=== PATIENT | male | born 1950 | race African-American/Black ===

== ENCOUNTER 2019-07-04 15:29 | Inpatient (IN) ==
[2019-07-04] MEDS: NS 500 ML IV ONE ×2 (15:47)
[2019-07-04 15:57] LABS: URINE SOURCE CLEAN CATCH
[2019-07-04 16:00] LABS: BILIRUBIN URINE MODERATE (NEGATIVE); BLOOD URINE NEGATIVE (NEGATIVE); COLOR YELLOW; GLUCOSE URINE NEGATIVE (NEGATIVE); KETONE URINE 20 mg/dL (NEGATIVE); LEUKOCYTES URINE NEGATIVE (NEGATIVE); NITRITE URINE NEGATIVE (NEGATIVE); PROTEIN URINE 100 mg/dL (NEGATIVE); TURBIDITY URINE HAZY (CLEAR); UROBILINOGEN URINE 6 mg/dL (NORMAL)
[2019-07-04] MEDS ORDERED: NS 1,000 ML ONE (16:14)
[2019-07-04] MEDS ORDERED: NS 1,000 ML IV ONE ×2 (16:17→17:37)
[2019-07-04 16:19] LABS: UR EPITHELIAL CELLS <10 /HPF (<10); URINE BACTERIA NEGATIVE /HPF; URINE RBC <10 /HPF (<10)
[2019-07-04 16:26] LABS: BASO# 0.04 X1000 (0.0-0.2); BASO% 0.6 % (0.0-0.8); EOS# 0.02 X1000 (0.0-0.7); EOS% 0.3 % (0.0-10.0); HEMATOCRIT 38.3 % (42.0-52.0); HEMOGLOBIN 13.5 g/dL (14.0-18.0); IMM GRAN# 0.04 X1000 (0.0-0.04); IMM GRAN% 0.6 % (0.0-0.5); LYMPH% 7.7 % (20.5-51.1); MCH 27.7 PG (27-31); MCHC 35.2 g/dL (33-37); MCV 78.6 FL (81-99); MONO# 0.92 X1000 (0.11-0.59); MONO% 14.2 % (1.7-9.3); MPV 9.5 FL (7.4-10.4); NEUT# 4.98 X1000 (1.4-6.5); NEUT% 76.6 % (42.2-75.2); PLT 384 X1000 (130-400); RBC 4.87 XMIL (4.7-6.1); RDW 12.8 % (11.5-14.5)
[2019-07-04 16:33] LABS: URINE CASTS GRANULAR PRESENT; URINE CRYSTALS NONE SEEN; URINE YEAST NONE SEEN
--- NOTE | 2019-07-04 16:38 | Diag Imaging Result Doc PS360 ---
EXAM: CHEST-1 VIEW 07/04/2019 HISTORY: SOB TECHNIQUE: AP portable upright at 1630 COMMENT: The lungs are clear and the heart and pulmonary vascularity are within normal limits. Compared to 03/23/2019 there has been no significant change. IMPRESSION: No acute disease. Electronically signed by Jose Martin Arriaga 07/04/2019 4:35 PM
[2019-07-04 16:40] LABS: INR 1.58; PROTIME 19.1 Seconds (11.0-16.0)
[2019-07-04 16:41] LABS: PTT 54.2 Seconds (22.3-41.8)
--- NOTE | 2019-07-04 16:41 | EKG Report ---
Test Performed on : 07/04/2019 4:09:12 PM Test Reason : SOB Blood Pressure : / mmHG Vent. Rate : 095 BPM Atrial Rate : 095 BPM P-R Int : 148 ms QRS Dur : 076 ms QT Int : 400 ms P-R-T Axes : 079 085 068 degrees QTc Int : 502 ms Normal sinus rhythm. Prolonged QT Abnormal ECG No previous ECGs available Unconfirmed Result
[2019-07-04 16:45] LABS: ALB/GLOB RATIO 0.8; ALBUMIN 3.5 g/dL (3.5-5.0); CALCIUM 10.4 mg/dL (8.8-10.2); CREATININE 1.5 mg/dL (0.7-1.2); POTASSIUM 4.3 mmol/L (3.5-5.1); TOTAL BILIRUBIN 6.43 mg/dL (0.20-1.00)
--- NOTE | 2019-07-04 17:30 | Diag Imaging Result Doc PS360 ---
EXAM: CT ABDOMEN/PELVIS W/O CONTRAST 07/04/2019 HISTORY: FLANK PAIN TECHNIQUE: This exam was performed using automated exposure control, adjustment of mA or kV according to patient size, and/or use of iterative reconstruction technique. COMMENT: The current study is compared with the previous examination of 10/11/2017. There is a pleural-based nodule just above the right hemidiaphragm in the right lower lobe measuring less than 10 mm in diameter. This has not changed significantly since the previous study. Otherwise the visualized portion of the chest is unchanged. The ascites which was present at the time the previous study has apparently resolved. There are somewhat heterogeneous and poorly defined masses in the liver particularly in the left lobe. This was not appreciable on the previous study. There has been cholecystectomy which was not previously the case. There are granulomata in the liver and spleen. There is enlargement of both adrenal glands particularly the left which was also the case on the previous examination. There is mesenteric adenopathy/panniculitis which was also present at the time the previous study. There are some nodules seen in the omentum. There is some retained barium in the distal small bowel. There is a large amount of stool present in the colon particularly in the area of the hepatic flexure. There is no evidence of nephrolithiasis or hydronephrosis. The aorta is not distended. There is presacral edema and thickening of the perirectal fascia. The urinary bladder is not distended. These findings were also present on the previous study. There is bilateral spondylolysis at L5. There is an apparent sclerotic focus in the medial right iliac bone which has not changed significantly since the previous study. There are some ill-defined sclerotic foci in the left T12 vertebral body and the right lateral L1 vertebral body which were not present previously and may represent sclerotic metastases. IMPRESSION: Hepatic, adrenal, and osseous metastatic disease. This is generally worse than on 10/11/2017. Mesenteric adenopathy. Other chronic changes as described above. Electronically signed by Jose Martin Arriaga 07/04/2019 5:28 PM
[2019-07-04] MEDS ORDERED: MORPHINE IV ONE (17:37)
--- NOTE | 2019-07-04 17:44 | PROVIDER DOCUMENTATION ---
This chart was entered by Suzanne Patel Scribe, acting as scribe for García Hodges MD. HPI-Abdominal Pain/GI Problem - General Stated Complaint: CONSTIPATION Time Seen by Provider: 07/04/19 15:36 Source: patient Allergies/Adverse Reactions: Patient Allergies Allergy/AdvReac Type Severity Reaction Status Date / Time No Known Allergies Allergy Verified 03/23/19 12:43 Home Medications: Home Medication List Medication Instructions Recorded Confirmed Last Taken Type Atorvastatin Calcium [Lipitor] 40 mg PO DAILY 10/12/17 07/04/19 03/22/19 History Calcium Carbonate/Vitamin D3 1 ea PO DAILY 07/04/19 07/04/19 Unknown History [Calcium 500 + Vit D 200 Caplet] Enzalutamide [Xtandi] 40 mg PO DAILY 07/04/19 07/04/19 Unknown History Tamsulosin HCl 0.4 mg PO DAILY 07/04/19 07/04/19 Unknown History - History of Present Illness-ABD Nature of Presenting Problems: Patient is a 69 year old male who presents with LLQ abdominal pain. States constipation and weakness with pain. Reports symptoms have been present for 1 week. Denies fever, cough, nausea and vomiting. Abdominal Pain Onset Location: reports: LLQ Quality of Pain: reports: aching Severity in ED: reports: mild Onset/Duration: reports: 1 week ago Timing: reports: still present Activities at Onset: reports: light activity Associated Symptoms: reports: constipation, weakness Last BM: 1 week ago Bruising or Bleeding Gums?: No Similar Symptoms Previously?: Yes Recently seen or treated by another doctor?: No Review of Systems - Adult - REVIEW OF SYSTEMS - ADULT Constitutional: reports: no symptoms reported. denies: fever Eyes: reports: no symptoms reported Ears, Nose, Mouth & Throat: reports: no symptoms reported Cardiovascular: reports: no symptoms reported Respiratory: reports: no symptoms reported. denies: cough Gastrointestinal: reports: see HPI, abdominal pain (LLQ), constipation. denies: nausea, vomiting Genitourinary: reports: no symptoms reported Musculoskeletal: reports: see HPI, muscle weakness Integumentary: reports: no symptoms reported Neurological: reports: no symptoms reported Psychiatric: reports: no symptoms reported Endocrine: reports: no symptoms reported Hematologic/Lymphatic: reports: no symptoms reported Allergic/Immunologic: reports: no symptoms reported All Other Systems: Reviewed and Negative Past History - Adult - PAST MEDICAL HISTORY-ADULT Review of Records: reports: Old Records Reviewed, Nursing Assessment Review, Medications Reviewed, Social history reviewed & non-contributory. Major Childhood Illnesses: reports: denies history Cardiovascular: reports: hyperlipidemia Respiratory: reports: denies history Gastrointestinal: reports: denies history Obstetrical/Gynecological: reports: denies history Genitourinary: reports: prostate cancer Musculoskeletal: reports: denies history Neurological: reports: denies history Psychiatric: reports: denies history Endocrine/Immune: reports: denies history Other Conditions: reports: denies history - PRIOR SURGERIES/PROCEDURES Surgical/Procedure History: reports: reviewed, not pertinent - IMMUNIZATION STATUS Childhood Immunizations: See Nurse Assessment Flu Vaccine: See Nurse Assessment - FAMILY HISTORY Family History: reviewed, not pertinent - SOCIAL HISTORY Smoking: denies Substance Use: alcohol Alcohol Use Frequency: occasionally Physical Exam-General - PHYSICAL EXAM-ADULT Initial Vital Signs Reviewed: Yes - CONSTITUTIONAL General Appearance: alert, no apparent distress, thin - HEAD, EARS, NOSE, MOUTH & THROAT HENMT: normocephalic/atraumatic, moist mucous membranes - NECK Neck: non-tender, normal inspection - RESPIRATORY Respiratory: chest non-tender, lungs clear, normal breath sounds - CARDIOVASCULAR Cardiovascular: regular rate, rhythm - GASTROINTESTINAL (ABDOMEN) Abdominal Exam: normal bowel sounds, non tender, soft - SKIN Integumentary: normal color, normal turgor, warm/dry - NEUROLOGIC Neurologic: grossly normal - PSYCHIATRIC Psych/Mental Status: normal mood/affect, normal thought content, normal thought process, oriented x 3 Progress - PLAN OF CARE/RESULTS Result Diagrams: 07/04/19 16:00 07/04/19 16:00 - REASSESSMENT Reassessment #1 Time Reassessed: 17:43 Status: improving (PATIENT ALERT. DISCUSSED WITH HOSPITALIST WILL ADMIT) - EKG 1 Time of EKG reading by physician:: 16:09 EKG Read and Signed by:: García Hodges EKG Interpretation (*Must complete 3 of following elements*): Abnormal Rate: 95 Rhythm: normal sinus rhythm [place]: normal PA Interval: normal Comments: prolonged QT Departure - Departure Date of Disposition Decision: 07/04/19 Time of Disposition Decision: 17:38 DIAGNOSIS: Weakness, Hypotension, Metastatic carcinoma, Hyponatremia, Acute hepatic failure Disposition: ADMITTED INPATIENT 09 Certified Medical Emergency: Emergent Condition: Fair Referrals and Follow-Ups: None,PCP [Primary Care Provider] - - Critical Care Note This patient required my direct & personal management of CC.: No Attestation - Physician/ HUEY Attestation Patient care was provided by Advanced Practice Provider:: No The physician spent face to face time with patient:: Yes Advanced Practice Provider documentation review:: Supervising physician onsite and consulted in the evaluation and care of this patient. The physician did have a face to face encounter with the patient. This chart was documented by the indicated scribe, (Suzanne Patel Scribe) and accurately reflects the services I performed and decisions made by me, García Hodges MD, as attested by the provider's signature.
--- NOTE | 2019-07-04 18:32 | HISTORY AND PHYSICAL ---
PRIMARY CARE PHYSICIAN: [facility]. CHIEF COMPLAINT: Left lower quadrant abdominal pain with decreased appetite and weakness over the past week that has progressively worsened. HISTORY OF PRESENTING ILLNESS: This is a 69-year-old male who presents to [facility] with complaints of left lower quadrant abdominal pain. States that he has had constipation for about a week, decreased appetite and weakness. He states that he has had a history of prostate cancer and has been treated through the [facility] but is a very poor historian so it is very unclear of what all treatment he has obtained. Workup we got a CT of the abdomen and pelvis that shows hepatic, adrenal and osseous metastatic disease generally worse than on 10/11/2017. His sodium level was noted to be 122 with a chloride of 81, BUN of 40 with a creatinine of 1.5, total bilirubin of 6.43, AST of 207, ALT 125 with an alkaline phosphatase of 1415, plasma lactate was 1.3 so he will be admitted for further evaluation and treatment. PAST MEDICAL HISTORY: Of prostate cancer and hyperlipidemia. PAST SURGICAL HISTORY: Cholecystectomy. FAMILY HISTORY: Reviewed and noncontributory. SOCIAL HISTORY: Currently lives alone, smokes cigars but quit approximately 2 to 3 months ago. Drinks alcohol occasionally and denied any illicit drug use. ALLERGIES: He has no known drug allergies. HOME MEDICATIONS: Atorvastatin 40 mg p.o. daily, calcium with vitamin D3 1 p.o. daily, Xtandi 40 mg p.o. daily and tamsulosin 0.4 mg p.o. daily. LABORATORY DATA: Showed a white blood cell count of 6.50, hemoglobin 13.5, hematocrit 38.3, platelets 384,000, PT and INR of 19.1 and 1.58. Sodium 122, potassium 4.3, chloride 81, CO2 23, BUN of 40, creatinine 1.5, glucose 114, total bilirubin of 6.43, AST of 207, ALT 125, alkaline phosphatase 1415, plasma lactate of 1.3. Urinalysis was negative. Chest x-ray showed no acute disease. CT of the abdomen and pelvis showed an impression of hepatic, adrenal and osseous metastatic disease that is generally worse than on 10/11/2017, a mesenteric adenopathy. Chest x- ray showed no acute disease. EKG showed normal sinus rhythm at 95. REVIEW OF SYSTEMS: He denied any fever, chills, blurred vision, dizziness, chest pain, coughing, shortness of breath. He had left lower quadrant abdominal pain, constipation, decreased appetite and generalized weakness. Denied any burning or hurting with urination. PHYSICAL EXAMINATION: On arrival he had a temperature of 97.8 degrees, pulse 100, respirations 18, blood pressure 83/66, saturating 100% on room air. His orthostatics showed lying of 94/66 with a heart rate of 99, sitting 89/68 with a pulse of 98, standing 67/46 with a heart rate of 111, currently blood pressure is 105/73. GENERAL: This is a 69-year-old male who is lying in the bed and answers questions appropriately. HEENT: Normocephalic, atraumatic. Normal ENT inspection. Oropharynx and nares are clear. Pupils are equal, round, and reactive to light, accommodation. Extraocular movements are intact. NECK: Normal inspection, normal range of motion. LUNGS: Clear to auscultation bilaterally with equal lung expansion and chest wall movement. HEART: Regular rate and rhythm. No murmurs, rubs, or gallops. ABDOMEN: Soft. There is some tenderness to the left lower quadrant to palpation. Bowel sounds are present x4 quadrants. MUSCULOSKELETAL: He had 3/5 strength x4 extremities. NEUROLOGICAL: The cranial nerves 2-12 appear grossly intact. ASSESSMENT: 1. Orthostatic hypotension. 2. Hyponatremia. 3. Acute kidney injury. 4. Elevated liver function tests. 5. Prostate cancer with new known metastases to hepatic, adrenal and osseous. PLAN: He will be admitted to the medical unit, placed on telemetry, healthy heart diet. Will consult Oncology. Place on SCDs for DVT prophylaxis. Normal saline at 125 mL an hour, morphine 2 mg IV q.3 hours p.r.n. Continue his home medications. Recheck a CBC and a CMP in the a.m. and further orders after seen by attending and by hospice care consultant. Dictated by FEMI Whyte for Juan Singh MD cc: FEMI Whyte MD
[2019-07-04] MEDS ORDERED: TYLENOL PO PRN (18:46)
[2019-07-04] MEDS ORDERED: ZOFRAN IV PRN (18:46)
--- NOTE | 2019-07-04 19:07 | HISTORY AND PHYSICAL ---
SUBJECTIVE: I have seen and examined Mr. Yuan this morning, Mr. Yuan a 69-year-old gentleman who presents to emergency room because of abdominal pain. He has a history of prostate cancer, [facility] but is now going to be following up with Dr. Bonilla according to him. Upon presenting to the emergency room he was evaluated, he was found to be remarkably dehydrated and very orthostatic positive. His laboratory data revealed that he has remarkable obstructive pattern of jaundice, he is also remarkably dehydrated with acute kidney injury. Imaging study that was done of the CT scan of the abdomen does show hepatic renal and osseous metastatic disease. ASSESSMENT: 1. Abdominal pain on presentation most likely related to worsening of the hepatic masses. 2. History of prostate cancer presumably with metastasis to liver, adrenal glands and bones. 3. Severe clinical volume depletion. 4. Acute kidney injury secondary to volume depletion. 5. Obstructive pattern of jaundice. Patient's CT scan has been noted the CT report has been noted. We will get an ultrasound of the abdomen to look more closely at the CBD. Because patient is orthostatic positive which I think is related to volume depletion I think it is also reasonable to at least cover him for now with antibiotics to prevent any infection of the biliary draining system. 6. Orthostatic hypotension most likely due to volume depletion. 7. Hypovolemic hyponatremia. Will resolve this with saline infusion. So for now we are going to continue with the IV fluids. Because of the obstructive nature of his jaundice, we are going to get an ultrasound. I will get GI to evaluate him. He might eventually end up needing a stent in the CBD to keep it open to prevent any cholangitis. We are going to put him on antibiotics, blood culture and wait for GI to evaluate him and then go from there. Will also get his oncologist Dr. Tamez to evaluate him. Will start him on morphine for pain control and bowel regimen as well. Please refer to the details of the history and physical that has been dictated by the CLIENT SERVICES ASSOCIATE in the chart. cc: Juan Singh MD [facility]
--- NOTE | 2019-07-04 20:22 | Diag Imaging Result Doc PS360 ---
EXAM: US GB < RUQ (LIMITED) 07/04/2019 HISTORY: obstructive jaundice TECHNIQUE: Right upper quadrant ultrasound COMMENT: There is a portion of the pancreatic duct which appears to be distended in the area of the neck of the pancreas to over 3 mm. There is also decreased echogenicity in the body of the pancreas compared to the head. The liver is markedly inhomogeneous with apparent masses in the left hepatic lobe. There is antegrade flow in the portal vein. The common bile duct is not distended and measures 5 mm in diameter. The right kidney is without evidence of hydronephrosis or mass. The gallbladder is surgically absent. The visualized portions of the inferior vena cava and aorta are within normal limits. IMPRESSION: Multiple hepatic masses most likely representing metastatic disease. Dilatation of the pancreatic duct and heterogeneous appearance of the pancreatic body suspicious for neoplasm and/or pancreatitis. This is consistent with the appearance on CT of this date. Electronically signed by Jose Martin Arriaga 07/04/2019 8:19 PM
[2019-07-04] MEDS: NS 1,000 ML IV SCH (21:20)
[2019-07-04] MEDS: ZOSYN 3.375 GM in NS 50 ML IV SCH (21:20)
[2019-07-05] MEDS: ZOSYN 3.375 GM in NS 50 ML IV SCH ×5 (00:31→23:45)
[2019-07-05] MEDS: NS 1,000 ML IV SCH ×2 (06:21→11:39)
[2019-07-05] MEDS: MORPHINE IV PRN (06:41)
[2019-07-05 07:12] LABS: BASO# 0.01 X1000 (0.0-0.2); BASO% 0.1 % (0.0-0.8); EOS# 0.01 X1000 (0.0-0.7); EOS% 0.1 % (0.0-10.0); HEMATOCRIT 33.5 % (42.0-52.0); HEMOGLOBIN 11.6 g/dL (14.0-18.0); IMM GRAN# 0.03 X1000 (0.0-0.04); IMM GRAN% 0.4 % (0.0-0.5); LYMPH# 0.54 X1000 (1.2-3.4); LYMPH% 6.8 % (20.5-51.1); MCH 27.6 PG (27-31); MCHC 34.6 g/dL (33-37); MCV 79.8 FL (81-99); MONO# 1.09 X1000 (0.11-0.59); MONO% 13.6 % (1.7-9.3); MPV 9.4 FL (7.4-10.4); NEUT# 6.31 X1000 (1.4-6.5); PLT 258 X1000 (130-400); WBC 7.99 X1000 (4.8-10.8)
[2019-07-05 07:44] LABS: ALB/GLOB RATIO 0.8; ALBUMIN 2.9 g/dL (3.5-5.0); CALCIUM 9.3 mg/dL (8.8-10.2); CREATININE 1.6 mg/dL (0.7-1.2); POTASSIUM 4.2 mmol/L (3.5-5.1); TOTAL BILIRUBIN 6.09 mg/dL (0.20-1.00); TOTAL PROTEIN 6.6 g/dL (6.3-8.3)
[2019-07-05] MEDS ORDERED: PATIENT'S OWN MED PO SCH (09:00)
[2019-07-05] MEDS: OSCAL 500 + D PO SCH (09:40)
[2019-07-05] MEDS: FLOMAX PO SCH (09:40)
[2019-07-05] MEDS: MIRALAX PO SCH (09:40)
[2019-07-05] MEDS ORDERED: FLEET MINERAL OIL ENEMA PR ONE (10:36)
--- NOTE | 2019-07-05 14:51 | GASTROENTEROLOGY CONSULTATION ---
DATE: 07/05/2019 REASON FOR CONSULT: Abnormal LFTs HISTORY OF PRESENT ILLNESS: Mr. Yuan is a 69-year-old, male who came to the hospital yesterday with complaints of left lower quadrant pain with a decrease in appetite and weakness. The patient also complained about constipation. He mentioned that he has not had a bowel movement for the last 1 week onwards. The patient does have a history of prostate cancer and he states that he has been treated through the [facility]. The patient's abdomen and pelvis CT on admission showed that he had hepatic, adrenal, and osseous metastatic disease, generally worse than on 10/11/2017, mesenteric adenopathy. On admission his abdominal pain was 10/10. He has denied any nausea or vomiting. A manual rectal exam was done and it showed that the patient had fecal impaction. PAST MEDICAL HISTORY: Prostate cancer and hyperlipidemia. PAST SURGICAL HISTORY: Cholecystectomy. FAMILY HISTORY: Sister had colon cancer. Mom and dad had cancer. SOCIAL HISTORY: The patient lives alone. He is a , has 5 kids. Used to smoke cigars, quit last 2 to 3 months back. Drinks alcohol on an occasional basis but has denied any illicit drug use. ALLERGIES: No known drug allergies. HOME MEDICATIONS: Lipitor 40 mg p.o. daily, vitamin D3 one tablet daily, Xtandi 40 mg p.o. daily, tamsulosin 0.4 mg p.o. daily. REVIEW OF SYSTEMS: As per HPI. Otherwise, 12-point review of systems is negative. PHYSICAL EXAMINATION: Temperature 98.5, pulse 88, respirations 20, blood pressure 109/80, oxygen saturation 100% on room air. The patient's weight is 195 pounds. BMI is 25.0 kg/m2. General: He is alert, oriented x3, and in no acute distress. HEENT: Pale conjunctivae. No icterus. PERRL. Neck: Supple. Lungs: Clear to auscultation. Cardiovascular: Regular rate and rhythm. Abdomen: Soft. Tender in the left quadrant. Active bowel sounds heard in all 4 quadrants. No clubbing, no cyanosis, no edema. Pedal pulses 2+ present bilaterally. Neurologic: He is alert and oriented x3. Nonfocal. Cranial nerves 2-12 grossly intact. LABS: WBCs are 7.99, RBCs 4.20, hemoglobin 11.6, hematocrit is 33.5, platelet count is 258,000. PT 19.1, INR is 1.58. Sodium 123, potassium 4.2, chloride 85, carbon dioxide 19, anion gap 19, BUN 40, creatinine is 1.6, glucose 90, calcium 9.3. Total bilirubin is 6.09, AST is 183, ALT is 101, alkaline phosphatase is 1041, albumin is 2.9, plasma lactate is 0.9. PSA diagnostic is 1044. Urinalysis has shown protein of 100, ketones of 20, bilirubin is moderate. IMAGING: Chest x-ray has shown no acute disease. Abdomen and pelvis CT has shown hepatic, adrenal, and osseous metastatic disease. Abdominal ultrasound has shown multiple hepatic masses, most likely representing metastatic disease. Dilation of the pancreatic duct and heterogenous appearance of the pancreatic body, suspicious for neoplasm, and pancreatitis. IMPRESSION AND PLAN: - Abnormal LFTs - Metastatic prostate cancer - Constipation - Hyponatremia - Protein calorie malnutrition - Acute kidney injury - Volume depletion - Abnormal GI imaging - Anemia PLAN: Mr. Yuan is a 69-year-old, -Chinese male with a history of prostate cancer. GI has been consulted for his obstructive jaundice. Currently, the patient's bilirubin is 6.09. His liver functions are elevated. The patient's obstructive jaundice is mainly due to the intrahepatic obstruction related to his prostate cancer. The patient is severely constipated. He has not had a bowel movement since last 1 week. We have ordered 2 mineral oil enemas and will continue his Miralax PO daily. He is currently receiving IV fluids, normal saline at 125 mL He is receiving antibiotic, Zosyn. The patient also has an oncology consult with Dr. Bonilla. We will continue to monitor the patient and follow the plan of care per PCP. This plan was discussed with Dr. Luna. Thank you for your consult. Please call us for any further questions or concerns. Dictated by FEMI Dumont for Charly Luna MD Physician Attestation I have seen and examined the patient. I have discussed and reviewed the note by Aylin KAHN and agree with findings and plan as documented. In brief, Mr. Yuan is a 69 year old man who presents with abdominal pain in the setting of constipation for 1 week and abnormal LFTs. He has not had any culprit medications that could have cause cholestatic liver injury. There is no extrahepatic or intrahepatic mets on CT or US. Dilated pancreatic duct is noted. His abnormal LFTs is likely from intrahepatic infiltration from his underlying prostate cancer. Recommend IVFs and avoiding hepatotoxic agents. He also reports constipation for 1 week, which could be contributing to his abdominal pain. Recommend miralax, enemas, correcting hyponatremia, and minimizing constipating meds. Recommend palliative care consultation if not already following. Will follow with you. MARCIE
--- NOTE | 2019-07-05 20:02 | PROGRESS NOTE ---
DATE: 07/05/2019 SUBJECTIVE: Patient has no major complaints. He looks well. OBJECTIVE: Blood pressure is 92/63, heart rate of 99, respiratory rate of 17, temperature 97.6 degrees.Cardiovascular: Regular rate and rhythm. Pulmonary: Bilateral breath sounds clear to auscultation. GI: Soft, nontender, nondistended. Bowel sounds are positive. LABS: White count 7.9, hemoglobin and hematocrit 11, 33, platelets 258,000. Sodium is 123, creatinine 1.6, T bilirubin 6.09, AST and ALT of 183 and 101. PROBLEM LIST: 1. Abdominal pain due to hepatic masses. We are going to continue treatment and pain control. GI has been consulted. I am not quite sure what else they are planning to do. [place] that he has a obstructive jaundice but related to the cancer. 2. Constipation. We will continue to treat that. 3. Hyponatremia. We will need to check urine electrolytes and follow and continue gentle hydration. This certainly could be syndrome of inappropriate antidiuretic hormone secretion. He has not improved on normal saline but we will continue to monitor closely. Disposition pending clinical status but anticipate he will be here for another day or 2. 4. Metastatic presumably prostate versus bladder cancer. Heme-Onc has been consulted, waiting on their input. Continue to follow closely. cc: Jose Luis Rahman MD
[2019-07-05] MEDS: LIPITOR PO SCH (20:49)
[2019-07-06] MEDS: NS 1,000 ML IV SCH ×3 (02:30→12:16)
[2019-07-06] MEDS: ZOSYN 3.375 GM in NS 50 ML IV SCH ×3 (05:44→19:40)
[2019-07-06 06:58] LABS: BASO# 0.01 X1000 (0.0-0.2); BASO% 0.1 % (0.0-0.8); HEMATOCRIT 31.8 % (42.0-52.0); IMM GRAN# 0.03 X1000 (0.0-0.04); IMM GRAN% 0.4 % (0.0-0.5); LYMPH# 0.46 X1000 (1.2-3.4); LYMPH% 5.8 % (20.5-51.1); MCH 27.7 PG (27-31); MCHC 34.6 g/dL (33-37); MCV 80.1 FL (81-99); MONO# 1.15 X1000 (0.11-0.59); MONO% 14.6 % (1.7-9.3); MPV 9.4 FL (7.4-10.4); NEUT# 6.22 X1000 (1.4-6.5); NEUT% 79.1 % (42.2-75.2); PLT 204 X1000 (130-400); RBC 3.97 XMIL (4.7-6.1); RDW 13.3 % (11.5-14.5); WBC 7.87 X1000 (4.8-10.8)
[2019-07-06 07:51] LABS: AGAP 16; BUN 32 mg/dL (8-22); CALCIUM 8.8 mg/dL (8.8-10.2); CHLORIDE 90 mmol/L (98-107); COSMO 256; CREATININE 1.3 mg/dL (0.7-1.2); ESTIMATED GFR > 60; GLUCOSE 95 mg/dL (70-104); POTASSIUM 4.3 mmol/L (3.5-5.1); SODIUM 124 mmol/L (136-145); TCO2 18 mmol/L (25-35)
[2019-07-06] MEDS: MORPHINE IV PRN (10:14)
[2019-07-06] MEDS: FLOMAX PO SCH (10:14)
[2019-07-06] MEDS: OSCAL 500 + D PO SCH (10:14)
[2019-07-06] MEDS: MIRALAX PO SCH (10:14)
--- NOTE | 2019-07-06 11:03 | HEMO/ONC CONSULTATION ---
DATE: 07/05/2019 ADMITTING PHYSICIAN: Dr. Juan Singh. REQUESTING PHYSICIAN: Dr. Juan Singh. We appreciate this consult. CHIEF COMPLAINT: Prostate cancer. HISTORY OF PRESENT ILLNESS: Mr. Libby Yuan is a 69-year-old, male, well known to Dr. Bonilla, with a history of stage IV prostate cancer. The patient was on Eligard and Casodex. However, he was last seen by us in our clinic in April of 2018. The patient's care was transferred over to the [facility] and we had not seen the patient since that time. The patient presented to [facility] Emergency Department the day of admission secondary to left lower quadrant abdominal pain with constipation that had been ongoing for approximately 1 week. The patient also reported a decrease in appetite and significant weakness. CT of the abdomen and pelvis was obtained which revealed hepatic, adrenal, and osseous metastatic disease that was worse than last seen in September of 2017. Additionally, examination of LFTs revealed a bilirubin of 6.43, alkaline phosphatase 1415, AST 207, and ALT 125. The patient was admitted secondary to abdominal pain with hyperbilirubinemia and worsening hepatic metastasis as well as severe volume depletion and acute kidney injury. We are consulted as the patient has been known to us with a history of metastatic prostate cancer. PAST MEDICAL HISTORY: 1. Hyperlipidemia. 2. Stage IV prostate cancer. PAST SURGICAL HISTORY: Cholecystectomy. FAMILY HISTORY: Negative for any hematologic or oncologic disease. SOCIAL HISTORY: The patient reports that he quit smoking cigars 2 to 3 months ago. He drinks alcohol occasionally and does not use illicit drugs. MEDICATIONS ON ADMISSION: 1. Atorvastatin. 2. Calcium. 3. Xtandi. 4. Tamsulosin. 5. Calcium with vitamin D3. ALLERGIES: The patient has no known drug allergies. REVIEW OF SYSTEMS: A 14 point review of systems was obtained and is negative except for mentioned in the HPI. PHYSICAL EXAMINATION: Mr. Yuan is a 69-year-old male, lying supine in bed, slightly dyspneic but otherwise in no apparent distress. Vital Signs: Temperature 98.9 degrees, blood pressure 99/69, heart rate 93, respirations 18, O2 saturation is 97% on room air. HEENT: Normocephalic, atraumatic. Mucous membranes slightly pale and moist. Sclerae are icteric. Extraocular movements intact. Chest: Respirations are nonlabored. CV: S1 and S2 are heard. Heart rate 93. Abdomen: Nondistended. Extremities: No clubbing, cyanosis, or edema. Dermatologic: No rashes, bruises, or lesions. Neurologic: The patient is awake, alert, and oriented x3. He has no overt focal deficit. LABORATORY DATA: Hemoglobin 11.6, hematocrit 33.5, white blood cell count is 7.99, platelets 258,000. Sodium 123, potassium 4.2, chloride is 85, CO2 is 19, BUN 40, creatinine 1.6, and glucose is 90. Bilirubin is 6.09, alkaline phosphatase 1041, AST 183, ALT 101. PSA is 1044. Calcium is 9.3. IMAGING STUDIES: CT of the abdomen and pelvis reveals hepatic, adrenal, and osseous metastatic disease with mesenteric adenopathy. Abdominal ultrasound reveals multiple hepatic metastases with pancreatic duct dilatation. The pancreas is heterogenous with questionable neoplasm versus pancreatitis. ASSESSMENT AND PLAN: 1. Stage IV prostate cancer. The patient was on Eligard and Casodex. He was last seen in our clinic in April of 2018. Care was taken over by the [facility]. We will obtain records. We will await a gastroenterology consult and possible endoscopic retrograde cholangiopancreatography. 2. Orthostatic hypotension, stable at this time. Blood pressure 99/69. 3. Hyponatremia. The patient is currently receiving intravenous normal saline. Sodium 123. 4. Acute kidney injury, stable. Creatinine is 1.6. 5. Elevated liver function tests with questionable obstruction of common bile duct. The patient does have pancreatic ductal dilatation as well. Gastroenterology has been consulted. 6. We will follow along with you and make further recommendations pending outcomes. The above reflects the history, exam, assessment, and plan of Dr. Bonilla. Dictated by FEMI Bowie for Meet Bonilla MD cc: FEMI Bowie MD [facility]
[2019-07-06] MEDS: PATIENT'S OWN MED PO SCH (11:27)
--- NOTE | 2019-07-06 14:31 | GASTROENTEROLOGY PROGRESS NOTE ---
DATE: 07/06/2019 SUBJECTIVE: Mr. Yuan is a 69-year-old, male, resting in bed. The patient had denied any abdominal pain, nausea, or vomiting. The patient did have 1 bowel movement today. OBJECTIVE: Vital Signs: Temperature 98.2 degrees, pulse 97, respirations 16, blood pressure 90/63, oxygen saturation 98% on room. The patient's weight is 195 pounds, BMI is 25.0 kg/m2. General: He is alert and oriented x3 and in no acute distress. HEENT: Pale conjunctivae. No icterus. PERRL. Neck: Supple. Lungs: Clear to auscultation. Cardiovascular: Regular rate and rhythm. Abdomen: Soft, nontender, nondistended. Active bowel sounds heard in all 4 quadrants. Extremities: No clubbing. No cyanosis. No edema. Pedal pulses 2+ present bilaterally. Neurologic: Alert and oriented x3. LABORATORY DATA: WBCs are 7.87, RBC is 3.97, hemoglobin is 11.0, hematocrit is 31.8, platelet count is 204,000. Sodium is 124, potassium is 4.3, chloride is 90, carbon dioxide is 18, anion gap is 16, BUN is 32, creatinine is 1.3, glucose is 95, calcium is 8.8. Total bilirubin is 6.09, AST 183, ALT 101, alkaline phosphatase is 1041, albumin is 2.9. IMPRESSION AND PLAN: - Abnormal LFTs - Metastatic prostate cancer - Constipation - Hyponatremia - Protein calorie malnutrition - Acute kidney injury - Volume depletion - Anemia PLAN: Mr. Yuan is a 69-year-old, male with a history of prostate cancer. GI is following him for his abnormal LFT's. The patient's abnormal LFTs are due to the intrahepatic infiltration from the prostate cancer. The patient's abdominal pain is resolved. The patient's constipation is getting resolved. Oncology is following the patient. We recommend Palliative Care consultation for the patient. We will sign off for now. Please call us for any further questions or concerns. This plan was discussed with Dr. Luna. Dictated by FEMI Dumont for Charly Luna MD Physician Attestation I have seen and examined the patient. I have discussed and reviewed the note by Aylin KAHN and agree with findings and plan as documented. In brief, Mr. Yuan is a 69 year old man with history of metastatic prostate cancer who presents with worsening cholestatic LFTs, volume depletion, and constipation. His constipation has improved. He is tolerating PO. He reports to me that we was seen at the [facility] in [place] within the last 3-4 months for his prostate cancer. I have reviewed the US imaging and CT. He does not have any evidence of extrahepatic biliary obstruction or cholangitis; therefore, there is not indication for ERCP at this time. Discussed recommendations with oncology. Overall, prognosis is poor given hepatic dysfunction. Agree with palliative care consultation. Will sign off. Please call with questions. MTDD
[2019-07-06] MEDS ORDERED: SAMSCA PO ONE (16:10)
--- NOTE | 2019-07-06 16:41 | PROGRESS NOTE ---
DATE: 07/06/2019 SUBJECTIVE: The patient has no major complaints. OBJECTIVE: Vital signs: Blood pressure is 90/63, heart rate of 97, respiratory rate of 16, temperature 98.2, degrees, 98% on room air. Cardiovascular: Regular rate and rhythm. Pulmonary: Bilateral breath sounds clear to auscultation. GI: Soft, nontender, nondistended. Bowel sounds are positive. LABORATORY: White count 7, hemoglobin and hematocrit 11 and 31, platelets 204,000. Sodium 124, creatinine 1.3. PROBLEM LIST: 1. Stage IV prostate cancer. He is on chemotherapy or had been with Eligard and Casodex. Questionable common bile duct obstruction. Unfortunately, we did not get liver enzymes today, but we are going to pursue that. His PSA is 1044. In any case, we are waiting on GI recommendations. Hematology/Oncology has ordered a slew of tests including an CT-guided biopsy of the liver, abdomen, pelvis, thorax, bone scan. I do agree with the MRCP or ERCP. At this point, I think MRCP will be helpful because it is not as invasive if it can be accomplished. We will track his liver enzymes and follow. 2. Hyponatremia. 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 I think he may benefit from Samsca or something to that effect. We are going to give him low dose and see how he does. DISPOSITION: Pending clinical status. cc: Jose Luis Rahman MD
--- NOTE | 2019-07-06 17:11 | Diag Imaging Result Doc PS360 ---
EXAM: CT THORAX/ABD/PELVIS W/CON INDICATION: R/O mets TECHNIQUE: This exam was performed using automated exposure control, adjustment of mA or kV according to patient size, and/or use of iterative reconstruction technique. COMPARISON: CT abdomen and pelvis without contrast dated 07/04/[address] chest dated 10/13/2017 FINDINGS: CHEST: There are trace bilateral effusions at the lung bases. There is adjacent subsegmental atelectasis at both lung bases. Otherwise, the lungs are grossly clear. There is no cardiomegaly. There are calcified right hilar lymph nodes indicating prior granulomatous disease. No significant mediastinal or hilar lymphadenopathy is appreciated, otherwise. There is a small sclerotic lesion in the T5 vertebral body on the right that was not present on the previous study and is suspicious for a metastatic focus. There is also a small cortical sclerotic lesion involving the right scapular cortex that was out of the [id number] on the previous study. This also probably represents a small metastatic lesion. ABDOMEN/PELVIS: There has been a prior cholecystectomy. There is small volume ascites tracking around the liver and layering in the pelvis. However, it has increased since the recent prior unenhanced study. The known metastatic lesion involving the right and left hepatic lobes seen on the recent prior study are again identified. They exhibit peripheral vague enhancement. Masslike enlargement of both adrenal glands, particularly on the left, is again noted. Diffuse mesenteric edema appears slightly worse than the previous study. Lymphadenopathy at the root of the mesentery is stable. There is increased body wall anasarca as compared to previous study. Sclerotic lesions involving the lumbar spine are again noted as was discussed on the previous unenhanced study. The abdomen and pelvis are otherwise essentially stable as compared to the recent prior study. IMPRESSION: 1.Trace bibasilar pleural effusions with adjacent subsegmental atelectasis. No evidence of intrathoracic metastatic disease. 2.Sclerotic lesions involving the lumbar and thoracic spine, the right scapula, and right pelvis that are suspicious for metastatic foci. 3.Known metastatic disease to the liver that is unchanged as compared to the previous unenhanced study. 4.Stable lymphadenopathy at the root of the mesentery. 5.Worsening body wall anasarca and diffuse mesenteric edema and slight increase in size of the small volume ascites since the previous study. 6.Stable masslike enlargement of the adrenal glands. Electronically signed by Jimenez Young 07/06/2019 5:09 PM
[2019-07-06 19:26] LABS: AGAP 15; BUN 30 mg/dL (8-22); CALCIUM 8.2 mg/dL (8.8-10.2); CHLORIDE 85 mmol/L (98-107); COSMO 247; CREATININE 1.2 mg/dL (0.7-1.2); ESTIMATED GFR > 60; GLUCOSE 115 mg/dL (70-104); POTASSIUM 4.1 mmol/L (3.5-5.1); SODIUM 119 mmol/L (136-145); TCO2 19 mmol/L (25-35)
[2019-07-06] MEDS: D5 NS 1,000 ML IV SCH (19:40)
[2019-07-06] MEDS: LIPITOR PO SCH ×2 (19:40→22:39)
[2019-07-07] MEDS: ZOSYN 3.375 GM in NS 50 ML IV SCH ×4 (01:51→21:05)
[2019-07-07 07:36] LABS: BASO# 0.05 X1000 (0.0-0.2); BASO% 0.5 % (0.0-0.8); HEMATOCRIT 31.3 % (42.0-52.0); HEMOGLOBIN 11.2 g/dL (14.0-18.0); IMM GRAN# 0.04 X1000 (0.0-0.04); IMM GRAN% 0.4 % (0.0-0.5); LYMPH# 0.56 X1000 (1.2-3.4); LYMPH% 5.5 % (20.5-51.1); MCH 27.8 PG (27-31); MCHC 35.8 g/dL (33-37); MCV 77.7 FL (81-99); MONO# 1.28 X1000 (0.11-0.59); MONO% 12.7 % (1.7-9.3); MPV 8.5 FL (7.4-10.4); NEUT# 8.18 X1000 (1.4-6.5); NEUT% 80.9 % (42.2-75.2); PLT 250 X1000 (130-400); RBC 4.03 XMIL (4.7-6.1); RDW 12.8 % (11.5-14.5); WBC 10.11 X1000 (4.8-10.8)
[2019-07-07 08:01] LABS: AGAP 15; BUN 29 mg/dL (8-22); CALCIUM 9.5 mg/dL (8.8-10.2); CHLORIDE 86 mmol/L (98-107); COSMO 257; CREATININE 1.2 mg/dL (0.7-1.2); ESTIMATED GFR > 60; GLUCOSE 133 mg/dL (70-104); POTASSIUM 3.9 mmol/L (3.5-5.1); SODIUM 124 mmol/L (136-145); TCO2 23 mmol/L (25-35)
[2019-07-07] MEDS: D5 NS 1,000 ML IV SCH (10:57)
[2019-07-07 12:01] LABS: INR 1.69; PROTIME 20.2 Seconds (11.0-16.0)
--- NOTE | 2019-07-07 12:52 | Diag Imaging Result Doc PS360 ---
EXAM: BONE SCAN, TOTAL BODY 07/06/2019 HISTORY: R/O mets TECHNIQUE: Whole body bone scan, 28.5 mCi of technetium 99m MDP COMMENT: The current study is compared with the previous examination of 10/29/2017. There is increased activity on the right side of the L1 vertebra and on the left side of T12. These findings were not present at the time the previous study. There is sclerosis in these locations on the recent CT of 07/06/2019. 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 Electronically signed by Jose Martin Arriaga 07/07/2019 12:49 PM
--- NOTE | 2019-07-07 13:51 | Diag Imaging Result Doc PS360 ---
EXAM: MRI MRCP (ABD W/O CONTRAST) INDICATION: evaluate for cbd obstruction TECHNIQUE: COMPARISON: CT dated 07/06/2019 and MRI brain dated 10/12/2017 FINDINGS: There is a known large conglomerate mass in the liver involving the right hepatic lobe, left hepatic lobe, and caudate lobe that was seen on the recent CT. The common bile duct is not dilated. No discrete filling defect or ductal stricture is appreciated. There has been a prior cholecystectomy. There is prominent distention of the stomach which is full of fluid and gas. It is similar to the previous CT. Note that this may be related to partial obstruction of the duodenum due to mesenteric lymphadenopathy near the root of the mesentery that can also be seen on the previous CT. There is certainly some mass effect on a portion of the duodenum. There is no pancreatic ductal dilatation. The pancreas is grossly unremarkable, otherwise. The spleen and kidneys are unremarkable. There is persistent small volume ascites tracking around the liver. There is diffuse mesenteric edema, which was also seen on the recent CT. There are trace bilateral pleural effusions. IMPRESSION: 1.Known large conglomerate hepatic mass that was also seen on the recent CT. 2.Distention of the stomach. It is similar to the previous CT. This may be due to partial obstruction of the duodenum by the lymphadenopathy at the root of the mesentery, which has been seen on previous CT. 3.Stable small volume ascites and diffuse mesenteric edema. 4.No evidence of common bile duct obstruction. Electronically signed by Jimenez Young 07/07/2019 1:49 PM
[2019-07-07] MEDS ORDERED: SODIUM CHLORIDE 0.9% INJ SCH (14:00)
[2019-07-07] MEDS: PATIENT'S OWN MED PO SCH (14:56)
[2019-07-07] MEDS: MIRALAX PO SCH (14:56)
[2019-07-07] MEDS: FLOMAX PO SCH (14:56)
[2019-07-07] MEDS: OSCAL 500 + D PO SCH (14:57)
[2019-07-07] MEDS: PROTONIX IV SCH (15:38)
[2019-07-07] MEDS ORDERED: SAMSCA PO ONE (15:40)
--- NOTE | 2019-07-07 15:58 | PROGRESS NOTE ---
DATE: 07/07/2019 SUBJECTIVE: A 69-year-old came to the emergency room with abdominal pain. He has a history of prostate cancer, followed at the [facility], now going to follow up with Dr. Bonilla according to the patient. Upon presenting to the emergency room, he was educated and was found to have markedly dehydrated and very orthostatic. Laboratory data revealed unremarkable obstructive pattern with jaundice, and also remarkably dehydrated, and acute kidney injury. ADMITTING DIAGNOSES: 1. He was admitted with abdominal pain, related to worsening of hepatic masses. 2. History of prostate cancer presently metastatic to liver, adrenal glands, and bones. 3. Severe clinical volume depletion. 4. Acute kidney injury secondary to volume depletion. 5. Obstructive pattern with jaundice. CT scan noted. We will get ultrasound of abdomen, and look more closely at the common bile duct because he was orthostatic. We gave him some volume. 6. Orthostatic hypotension. 7. Hypovolemic, hyponatremia. The patient is scheduled today to go for bone scan, MRI, and I think a liver biopsy to receive some fresh frozen plasma. He is awake and alert, and appears comfortable. He does complain of some constipation. OBJECTIVE: Temperature 97.6 degrees, pulse 90, respirations 16, and blood pressure 114/52. Pupils are equal. Lungs are clear anterolateral. Cardiovascular regular rhythm and rate without murmur or S3. Abdomen is soft. Skin is warm and dry. Urine output was 3500 mL. MRCP: No enlarged conglomerate hepatic mass that was also seen on recent CAT scan. Distention of the stomach, similar to previous CT scan. This may be due to partial obstruction of the duodenum by lymphadenopathy at the root of mesentery which has been seen on previous CT. Stable small volume ascites, diffuse mesenteric edema. No evidence of common bile duct obstruction. ASSESSMENT AND PLAN: 1. Stage IV prostate cancer. He is on chemotherapy, and has been on Eligard and Casodex. Questionable common bile duct obstruction, but did not see that on the MRI. We will follow his liver enzymes. PSA was 1044. Waiting recommendations of Hematology/Oncology and GI. 2. Hyponatremia, hypovolemic. Hyponatremia appears to be improving. It was 119 yesterday, and today is 124. I suspect this is some inappropriate antidiuretic hormone. REVIEW OF ORDERS: 1. He is on Lipitor 40 mg every evening, dextrose D5 getting 75 mL an hour. Hyponatremia noted so we may want to switch him to normal saline. 2. He is on Protonix 40 mg IV q.12h. 3. MiraLAX 17 g daily. 4. Flomax 0.4 mg daily. 5. Zosyn 3.375 g IV q.6 hours. 6. He got 1 dose of Samsca yesterday 15 mg. I will give him another dose today. cc: Robel Peck MD
--- NOTE | 2019-07-07 16:52 | Diag Imaging Result Doc PS360 ---
EXAM: CT GUIDED BX LIVER INDICATION: Liver masses primary vs prostate mets TECHNIQUE: COMPARISON: 07/06/2019 FINDINGS: Risks, benefits, and alternatives were discussed with the patient and informed consent was obtained. The patient was placed in a supine position and was prepped and draped in sterile fashion. Local anesthesia was achieved with 1% lidocaine solution. Using CT guidance, an 18-gauge coaxial biopsy needle system was used to obtain four 1.3 cm core biopsies from the known hepatic mass in the right hepatic lobe. There were no known complications. IMPRESSION: Technically successful CT-guided liver biopsy. Electronically signed by Jimenez Young 07/07/2019 4:49 PM
[2019-07-07] MEDS: LIPITOR PO SCH (21:05)
[2019-07-08] MEDS: PROTONIX IV SCH ×2 (02:15→13:59)
[2019-07-08] MEDS: ZOSYN 3.375 GM in NS 50 ML IV SCH ×4 (02:16→20:10)
[2019-07-08 07:41] LABS: ESTIMATED GFR > 60
[2019-07-08 07:44] LABS: AGAP 15; BUN 26 mg/dL (8-22); CALCIUM 9.1 mg/dL (8.8-10.2); CHLORIDE 87 mmol/L (98-107); COSMO 252; CREATININE 1.4 mg/dL (0.7-1.2); GLUCOSE 88 mg/dL (70-104); MAGNESIUM 2.3 mg/dL (1.5-2.7); POTASSIUM 3.9 mmol/L (3.5-5.1); SODIUM 123 mmol/L (136-145); TCO2 21 mmol/L (25-35)
[2019-07-08] MEDS: OSCAL 500 + D PO SCH (09:51)
[2019-07-08] MEDS: FLOMAX PO SCH (09:51)
[2019-07-08] MEDS: MIRALAX PO SCH (09:51)
[2019-07-08] MEDS: PATIENT'S OWN MED PO SCH (09:52)
--- NOTE | 2019-07-08 13:05 | PROGRESS NOTE ---
DATE: 07/08/2019 SUBJECTIVE: Mr. Yuan is resting, sleeping. He says his tummy is feeling a little better. He did get a better night's sleep last night. OBJECTIVE: Vitals: He remains afebrile at 98.5 degrees, pulse 97, respirations 18, blood pressure 90/47. HEENT: Pupils are equal and round. Lungs: Lungs are clear in all lung sprague. Cardiovascular: Regular rhythm and rate without murmur or S3. : Urine output is 1,100 mL. ASSESSMENT AND PLAN: 1. Stage IV prostate cancer. He is on chemotherapy, been getting Eligard and Casodex. Questionable common bile duct obstruction, but did not find that on MRI. Elevation of liver enzymes. They seem to be improving. PSA was very high. He had a liver biopsy per CT on 07/07/2019 for liver masses, primary versus metastatic, and I believe so. He has stage IV prostate cancer followed at the [facility] since 05/18, and Dr. Bonilla, has obtained records. He is going to check a CA-19-9. He has had liver mass biopsy and CT of the chest and bone scan. I believe the pathology has come back, but I am not sure whether this is primary, I believe it is primary prostate cancer. 2. Orthostatic hypotension, which is improved. 3. Hyponatremia, stable. 4. Acute kidney injury, stable. 5. Elevation in liver function test and we are following that. He appeared to have a dilated common bile duct, but that did not appear to have any obstruction on MRI. REVIEW OF HIS ORDERS: Getting Lipitor 40 mg a day. Calcium carbonate 1 daily. Protonix 40 mg IV q.12h. MiraLAX 17 g daily. Flomax 0.4 mg a day. Zosyn 3.375 g IV q.6h. I gave him some Samsca for his hyponatremia, his sodium has improved; I may give him another dose today. cc: Robel Peck MD
[2019-07-08] MEDS: LIPITOR PO SCH (20:10)
[2019-07-09] MEDS: PROTONIX IV SCH ×2 (02:02→16:18)
[2019-07-09] MEDS: ZOSYN 3.375 GM in NS 50 ML IV SCH ×5 (02:03→21:12)
[2019-07-09 08:09] LABS: BUN 22 mg/dL (8-22); CHLORIDE 89 mmol/L (98-107); COSMO 253; CREATININE 1.4 mg/dL (0.7-1.2); GLUCOSE 106 mg/dL (70-104); POTASSIUM 3.7 mmol/L (3.5-5.1); SODIUM 124 mmol/L (136-145); TCO2 19 mmol/L (25-35)
[2019-07-09 08:10] LABS: AGAP 16; CALCIUM 8.5 mg/dL (8.8-10.2)
[2019-07-09] MEDS ORDERED: SAMSCA PO ONE (09:41)
[2019-07-09] MEDS: FLOMAX PO SCH (09:57)
[2019-07-09] MEDS: MIRALAX PO SCH (09:57)
[2019-07-09] MEDS: OSCAL 500 + D PO SCH (09:57)
--- NOTE | 2019-07-09 10:04 | PROGRESS NOTE ---
DATE: 07/09/2019 SUBJECTIVE: He feels much better, sitting up eating his breakfast, good appetite. Remains afebrile. OBJECTIVE: Vital Signs: Temperature 98.4 degrees, pulse 80, respirations 17, blood pressure 102/68. Eyes: Pupils are equal and round. Lungs: Lungs are clear in all lung sprague. Cardiovascular exam: Regular rhythm and rate without murmur or S3. : Urine output is 1500 mL. ASSESSMENT AND PLAN: 1. Stage IV prostate cancer. He is on chemotherapy. Getting Eligard and Casodex. He had a liver biopsy per CT scan 07/07/2019. He is followed at the [facility] Dr. Bonilla is following him while he is here. He is checking his CA-19/9. He has had liver mass biopsy per CT scan, and he has had a bone scan. Waiting on pathology. 2. Orthostatic hypotension is improved. 3. Hyponatremia, which is improved. 4. Acute kidney injury, stable. 5. Elevation of liver function tests. I have been following his transaminase. His hematocrit is 31, hemoglobin 11, stable. Sodium 124, potassium 3.7. BUN 22, creatinine 1.4. I will give him 15 mg of Samsca again today. He is on Flomax 0.4 mg a day. He is on Zosyn 3.375 grams intravenous every 6 hours, Protonix 40 mg intravenous every 12 hours, Lipitor 40 mg every evening. cc: Robel Peck MD
[2019-07-09] MEDS: PATIENT'S OWN MED PO SCH (12:03)
[2019-07-09] MEDS: LIPITOR PO SCH ×2 (19:53→21:12)
[2019-07-10] MEDS: ZOSYN 3.375 GM in NS 50 ML IV SCH ×4 (02:26→20:09)
[2019-07-10] MEDS: PROTONIX IV SCH ×2 (02:26→14:39)
[2019-07-10 07:19] LABS: AGAP 13; BUN 20 mg/dL (8-22); CALCIUM 9.4 mg/dL (8.8-10.2); CHLORIDE 90 mmol/L (98-107); COSMO 256; CREATININE 1.2 mg/dL (0.7-1.2); ESTIMATED GFR > 60; GLUCOSE 101 mg/dL (70-104); SODIUM 126 mmol/L (136-145); TCO2 23 mmol/L (25-35)
[2019-07-10] MEDS: PATIENT'S OWN MED PO SCH (10:04)
[2019-07-10] MEDS: FLOMAX PO SCH (10:04)
[2019-07-10] MEDS: MIRALAX PO SCH (10:04)
[2019-07-10] MEDS: OSCAL 500 + D PO SCH (10:04)
[2019-07-10] MEDS ORDERED: SAMSCA PO ONE (13:42)
--- NOTE | 2019-07-10 14:08 | PROGRESS NOTE ---
DATE: 07/10/2019 Mr. Yuan feels good. He was sitting up eating breakfast and reading the paper. OBJECTIVE: Temperature 97.4 degrees, pulse 99, respirations 19, blood pressure 85/68. Pupils are equal and round. Lungs are clear in all lung sprague. Cardiovascular: Regular rhythm, rate without murmur or S3. Urine output was 1300 mL. ASSESSMENT AND PLAN: 1. Stage IV prostate cancer. He is on chemotherapy. Getting Eligard and Casodex. Had liver biopsy per CT scan on 07/07/2019. I think is still waiting on pathology. He is followed at the [facility] and Dr. Bonilla follows him here as well. I think they are checking a CA-19-9. Clinically he has improved. 2. Orthostatic hypotension, improved. 3. Hyponatremia, improved. 4. Acute kidney injury which is improved and stable. 5. Elevation of liver function test. REVIEW OF LABS: From the , his electrolytes today he does have hyponatremia, been giving him some Samsca. I think it is inappropriate ADH but his sodium has come up to 126, potassium 4.0, chloride 90, BUN 20, creatinine 1.2. CA-19-9 was 2 so it was less than 35 negative. We will check his electrolytes again tomorrow and CBC. Hopefully can go home soon and will give him a dose of 30 mg of Samsca tonight. cc: Robel Peck MD
[2019-07-10] MEDS: LIPITOR PO SCH (20:09)
[2019-07-11] MEDS: ZOSYN 3.375 GM in NS 50 ML IV SCH ×2 (02:27→09:35)
[2019-07-11] MEDS: PROTONIX IV SCH (02:28)
[2019-07-11 07:18] LABS: BASO# 0.01 X1000 (0.0-0.2); BASO% 0.1 % (0.0-0.8); EOS# 0.01 X1000 (0.0-0.7); EOS% 0.1 % (0.0-10.0); HEMATOCRIT 29.5 % (42.0-52.0); HEMOGLOBIN 10.5 g/dL (14.0-18.0); IMM GRAN# 0.03 X1000 (0.0-0.04); IMM GRAN% 0.4 % (0.0-0.5); LYMPH# 0.56 X1000 (1.2-3.4); LYMPH% 8.3 % (20.5-51.1); MCH 27.3 PG (27-31); MCHC 35.6 g/dL (33-37); MCV 76.6 FL (81-99); MONO# 1.14 X1000 (0.11-0.59); MONO% 16.8 % (1.7-9.3); MPV 8.6 FL (7.4-10.4); NEUT# 5.02 X1000 (1.4-6.5); NEUT% 74.3 % (42.2-75.2); PLT 191 X1000 (130-400); RBC 3.85 XMIL (4.7-6.1); RDW 13.1 % (11.5-14.5); WBC 6.77 X1000 (4.8-10.8)
[2019-07-11 07:46] LABS: AGAP 13; BUN 20 mg/dL (8-22); CALCIUM 8.9 mg/dL (8.8-10.2); CHLORIDE 91 mmol/L (98-107); COSMO 254; CREATININE 1.3 mg/dL (0.7-1.2); ESTIMATED GFR > 60; GLUCOSE 92 mg/dL (70-104); SODIUM 125 mmol/L (136-145); TCO2 21 mmol/L (25-35)
[2019-07-11] MEDS: MIRALAX PO SCH (09:35)
[2019-07-11] MEDS: OSCAL 500 + D PO SCH (09:35)
[2019-07-11] MEDS: FLOMAX PO SCH (09:35)
[2019-07-11] MEDS: PATIENT'S OWN MED PO SCH (09:36)
--- NOTE | 2019-07-11 16:15 | DISCHARGE SUMMARY ---
ADMISSION DATE: 07/04/2019 DISCHARGE DATE: 07/11/2019 HISTORY OF PRESENT ILLNESS: Mr. Yuan is a 69-year-old. He is followed at the [facility], various physicians in [place] I think and in [place]. He has no primary care physician here. He was admitted on 07/04/2019. He came in with left lower quadrant abdominal pain, decreased appetite, and weakness over the past week, progressively worsened. He presented on 07/04/2019. A 69-year-old, black male who presented to [facility] complaining of left lower quadrant abdominal pain. States he has had constipation for about a week, decreased appetite, and weakness. States he has a history of prostate cancer. Has been treated at the [facility]. Workup included a CT of the abdomen and pelvis that showed hepatic, adrenal, and osseous metastatic disease, generally worse than the comparison on 10/11/2017. Sodium level was 122, chloride was 81, BUN 40, creatinine 1.5. Total bilirubin was 6.43, AST was 207, ALT 125, alkaline phosphatase was 1415. Plasma lactate level is 1.3. PAST MEDICAL HISTORY: History of prostate cancer and hyperlipidemia. PAST SURGICAL HISTORY: History of cholecystectomy. SOCIAL HISTORY: Currently smokes cigars but quit 2 or 3 months ago. Drinks occasional alcohol but no illicit drugs. ADMISSION DIAGNOSES: 1. Orthostatic hypotension. 2. Hypernatremia. 3. Acute kidney injury. 4. Elevated liver function tests. 5. Prostate cancer with known metastases to the liver, adrenal, and the bones. HOSPITAL COURSE: Abdominal and pelvic CT showed hepatic, adrenal, and osseous metastatic disease, generally worse than comparison of 10/11/2017. He had mesenteric adenopathy, other chronic changes noted. His chest x-ray on admission, no acute disease. Gastroenterology was asked to evaluate. They felt he might have obstructive jaundice. His bilirubin was 6.09. Liver functions were mildly elevated. [place] the patient's obstructive jaundice mainly due to intrahepatic obstruction related to prostate cancer. The patient was severely constipated and gave him 2 mineral oil enemas and continued his MiraLAX, and given IV fluids at 125 mL an hour of normal saline. He was already on antibiotic, Zosyn. Oncology was following as well. 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 Oncology following stage IV prostate cancer. He is on Eligard and Casodex. He was last seen in the clinic here per Dr. Bonilla in April of 2018, taking over by the [facility]. We did obtain some records and it is possible he may need endoscopic retrograde cholangiopancreatography. He blood pressure improved with some fluids. Hyponatremia improved as well. We do think that probably some of that is a component of inappropriate ADH. It was noted that he had acute kidney injury. Creatinine 1.6. Liver functions were elevated. Dr. Luna from gastroenterology, he reviewed the ultrasound and CT imaging. Does not have any evidence of intrahepatic, biliary obstruction, or cholangitis so did not feel an indication for ERCP. Repeat chest, abdominal, and pelvic CT done on 07/06/2019, trace bibasilar pleural effusions with adjacent subsegmental atelectasis. No evidence of intrathoracic metastatic disease. Sclerotic lesions involving lumbar and thoracic spine, right scapula, and right pelvis suspicious for metastatic foci. Known metastatic disease of liver that is unchanged compared with previous study, stable lymphadenopathy at the root of the mesentery, worsening body wall anasarca, and diffuse mesenteric edema. Slight increase in size of small volume ascites seen, appreciated since previous study, and stable masslike enlargement of the adrenal glands. Dr. Bonilla felt stage IV prostate cancer, [facility] since 05/18, wanted to get a liver mass biopsy. They checked to see 19-9 and a bone scan. His hyponatremia appeared to be stable and acute kidney injury seemed to be stable, improving. Elevated liver function tests or transaminases were following. He felt this was secondary to his liver metastasis. MRCP was done. Has known enlarged conglomerate hepatic mass that was also seen on recent CT scan, distention of the stomach from a previous CT, may the partial obstruction of the duodenum by lymphadenopathy at the root of the mesentery which has been seen on previous CAT scan. Stable small volume ascites. Diffuse metastatic edema. No evidence of common bile duct obstruction. The patient felt better. His nausea improved. He was eating and wanted to go home on 07/11/2019. We will discharge him home. He will follow up with the OR. DISCHARGE MEDICATIONS: He is on Lipitor 40 mg a day, Os-Thad 500 Plus D 1 a day, Protonix 40 mg which we will give him p.o. twice a day, MiraLAX 17 g a day, and Flomax 0.4 mg a day. He will resume his enzalutamide which is 40 mg daily and [facility]. cc: Robel Peck MD
[2019-07-11] MEDS ORDERED: PRILOSEC PO ONE (16:35)
[2019-07-11 17:22] VITALS: BP 90/59
== END 2019-07-11 18:10 | disposition home or self-care (01) | DRG 436 ==
LOC: ED 15:29 → 3N 18:29 → SUATTDRO 18:29 → 3N 07-06 16:35
PROVIDERS: ATTEND Emergency Medicine